=== PATIENT | female | born 1980 | race African-American/Black ===

== ENCOUNTER 2022-05-04 21:42 | Emergency (ER) | payer MEDICARE, OTHER ==
[~2022-05-04] VITALS: Ht 162.6 cm; Wt 55.0 kg
[~2022-05-04 21:42] MED LIST: KEPP500 MT
[2022-05-04] MEDS ORDERED: VISCOUS LIDOCAINE 2% 15 ML UDC PO STA (22:32)
[2022-05-04] MEDS ORDERED: MAGNESIUM/ALUMINUM HYDROXIDE/SIMETHICONE 30ML UDC PO STA (22:32)
[2022-05-04] MEDS ORDERED: FAMOTIDINE 20MG TABLET PO ONE (22:45)
[2022-05-04 23:11] LABS: BASOPHILS % 0.7 % (0.0-2.0); EOSINOPHILS % 2.9 % (0.0-5.0); HEMATOCRIT. 38.8 % (36.0-48.0); HEMOGLOBIN. 12.7 g/dL (12.0-16.0); LYMPHOCYTES % 43.4 % (20.0-50.0); MEAN CORPUSCULAR VOLUME 88.3 fL (81.0-99.0); MEAN PLATELET VOLUME 9.6 fl (7.4-10.4); MONOCYTES % 9.1 % (2.0-8.0); NEUTROPHILS % 43.9 % (40.0-76.0); PLATELET 342 x1000/uL (130-400); RED BLOOD CELL COUNT 4.39 mill/uL (4.2-5.4); RED CELL DISTRIBUTION WIDTH 16.8 % (11.6-14.6)
[2022-05-04 23:15] LABS: CHLORIDE 104 mEq/L (98-107)
[2022-05-04 23:18] LABS: HCG SCREEN NEGATIVE
[2022-05-04 23:59] LABS: CLARITY URINE CLEAR (CLEAR); COLOR URINE YELLOW (YELLOW); KETONES URINE NEGATIVE (NEGATIVE); LEUKOCYTE ESTERASE URINE NEGATIVE (NEGATIVE); NITRITE URINE NEGATIVE (NEGATIVE); OCCULT BLOOD URINE NEGATIVE (NEGATIVE); PROTEIN URINE NEGATIVE (NEGATIVE); SPECIFIC GRAVITY URINE 1.002 (1.005-1.030); UROBILINOGEN URINE 0.2 E.U./dL (0.2-1.0)
[2022-05-05] MEDS ORDERED: KETOROLAC 15MG/ML VIAL IV ONE
[2022-05-05] MEDS ORDERED: MAG-55 MT (03:52)
[2022-05-05] MEDS ORDERED: FAMO-135 MT (03:52)
[2022-05-05 04:00] VITALS: BP 105/59
== END 2022-05-05 04:32 | disposition home or self-care (01) ==
LOC: ER 21:42
DX: R10.12 Left upper quadrant pain (principal); I10 Essential (primary) hypertension; J45.909 Unspecified asthma, uncomplicated; F31.9 Bipolar disorder, unspecified; Z88.0 Allergy status to penicillin
CPT/HCPCS: 36415; 71045; 80053; 81003; 81025; 83690; 84703; 85025; 96374; 99285; J1885